=== PATIENT | female | born 1955 | race Caucasian/White ===

== ENCOUNTER → 2017-12-30 | Outpatient (CLI) | payer OTHER ==
--- NOTE | 2017-12-30 11:22 | Diagnostic Imaging Report ---
Clinical indication: Patient with vomiting and diabetes mellitus. Comparison: None. Procedure: Solid Gastric emptying study After oral ingestion of 1.01 millicuries of technetium 99M sulfur colloid, mixed with scrambled egg, sequential imaging of the abdomen is performed. Computer analysis is performed and gastric emptying curves are calculated. Findings: There is gastric emptying demonstrated with sequential imaging. The residual retained gastric activity: 1 hour: 32% (less than 30% equals rapid and greater than 90% equals delayed) 2 hours: 12% (greater than 60% represents abnormally delayed) 3 hours: 9% (greater than 30% represents abnormally delayed) 4 hours: 7% (greater than 10% represents abnormally delayed) Impression: Unremarkable gastric emptying study with near borderline rapid gastric emptying at the one hour time point. Dictated by: Dictated on workstation # [id number]
== END ==
LOC: CARD 06:44
PROVIDERS: ATTEND Family Medicine
DX: R11.2 Nausea with vomiting, unspecified (principal); E11.9 Type 2 diabetes mellitus without complications
CPT/HCPCS: 78264

== ENCOUNTER → 2018-01-13 | Outpatient (CLI) | payer OTHER ==
[~2018-01-13] MED LIST: CATHETER FLUSH 10 ML SYR IV PRN; HYDR-34 PO; INSU100I32 SQ; METF-397 PO; METO-451 PO; PARO-49 PO; RANI150T46 PO
--- NOTE | 2018-01-13 12:25 | Diagnostic Imaging Report ---
INDICATION: ] Quadrant pain. FINDINGS: The patient was administered 5.42 mCi of Tc 99m Choletec and sequential imaging was performed over the right upper abdomen. There is progressive, homogeneous accumulation of radiotracer within the liver parenchyma. There is filling of the bile ducts and subsequent filling of the gallbladder. There is progressive clearance of activity from the liver parenchyma and accumulation of radiotracer within loops of small bowel. The patient was then administered a fatty meal, utilizing 8 ounces of Ensure. The gallbladder ejection fraction was calculated to be approximately 9.7%. (Normal values post fatty meal stimulation are 33% or greater.) IMPRESSION: 1. Hepatobiliary scan demonstrates a patent biliary tree. 2. Abnormal gallbladder ejection fraction of approximately 9.7%. Dictated by: Dictated on workstation # [id number]
== END ==
LOC: CARD 09:21
PROVIDERS: ATTEND Family Medicine
DX: R10.11 Right upper quadrant pain (principal); R11.0 Nausea
CPT/HCPCS: 78227

== ENCOUNTER 2018-01-25 06:18 | Outpatient (CLI) | payer OTHER ==
[~2018-01-25] VITALS: Ht 167.6 cm; Wt 90.3 kg
[2018-01-25] MEDS ORDERED: PARO-49 PO (10:14)
[2018-01-25] MEDS ORDERED: RANI150T46 PO (10:14)
[2018-01-25] MEDS ORDERED: INSU100I32 SQ (10:14)
[2018-01-25] MEDS ORDERED: METF-397 PO (10:14)
[2018-01-25] MEDS ORDERED: METO-451 PO (10:14)
[2018-01-26] MEDS ORDERED: HYDR-34 PO (15:08)
== END 2018-01-25 10:24 | disposition home or self-care (01) ==
LOC: PREOP 06:18
PROVIDERS: ATTEND Surgery
DX: Z01.818 Encounter for other preprocedural examination (principal)

== ENCOUNTER 2018-01-26 10:58 | Day surgery (SDC) | payer OTHER ==
[~2018-01-26] VITALS: Ht 167.6 cm; Wt 90.3 kg
[~2018-01-26 10:58] MED LIST changes: -CATHETER FLUSH 10 ML SYR IV PRN; -HYDR-34 PO
[2018-01-26] MEDS ORDERED: LACTATED RINGERS 1,000 ML IV PRN (11:49)
[2018-01-26 12:00] VITALS: BP 147/83
[2018-01-26] MEDS ORDERED: ceFAZolin INJECTION 1,000 MG in NS (IVPB) 50 ML IV ONE (12:00)
[2018-01-26 12:10] LABS: BASOPHILS # (AUTO) 0.1 10^3/uL (0.0-0.1); BASOPHILS % (AUTO) 1 % (0-10); EOSINOPHILS # (AUTO) 0.5 10^3/uL (0.0-0.3); EOSINOPHILS % (AUTO) 6 % (0-10); HEMATOCRIT 41 % (35-52); HEMOGLOBIN 14.1 G/DL (11.5-16.0); LYMPHOCYTES # (AUTO) 2.7 X 10^3 (1.0-4.0); LYMPHOCYTES % (AUTO) 33 % (12-44); MEAN CORPUSCULAR HEMOGLOBIN 31 PG (25-34); MEAN CORPUSCULAR HGB CONC 35 G/DL (32-36); MEAN CORPUSCULAR VOLUME 88 FL (80-99); MEAN PLATELET VOLUME 9.9 FL (7.4-10.4); MONOCYTES # (AUTO) 0.5 X 10^3 (0.0-1.0); MONOCYTES % (AUTO) 7 % (0-12); NEUTROPHILS # (AUTO) 4.3 X 10^3 (1.8-7.8); NEUTROPHILS % (AUTO) 54 % (42-75); PLATELET COUNT 331 10^3/uL (130-400); RED BLOOD COUNT 4.62 10^6/uL (4.35-5.85); RED CELL DISTRIBUTION WIDTH 12.6 % (10.0-14.5)
--- OUTSIDE RECORDS SUMMARY | 2018-01-26 12:11 | XMS REPORT | Continuity of Care Document ---
Author Author [facility] Organization [facility] Address Unknown Phone Unavailable Allergies Active Description Code Type Severity Reaction Onset Reported/Identified Relationship to Patient Clinical Status Yes IODINE IODINE UNKNOWN Yes IODINE UNKNOWN UNKNOWN Yes iodine [id number] Drug Allergy Unknown N/A 01/13/2018 Medications Medication Packaging Start Date Stop Date Route Dosage Sig ONDANSETRON TAB 4 MG (ZOFRAN) MG 04/14/2016 PRN ONCE NORMAL SALINE 1000CC IV BAG INJ 0.9 % (NS 1000CC IV BAG) ml 04/14/2016 04/15/2016 CONTINUOUSEVERY 0 Hour NORMAL SALINE W/KCL 40MEQ IV 40 MEQ (SALINE IV BAG W/[id number]) MLS 04/14/2016 04/15/2016 CONTINUOUSEVERY 0 Hour POTASSIUM CHLORIDE TAB 20 MEQ (K-DUR) MEQ 04/14/2016 04/14/2016 ONCE&1724 NORMAL SALINE 500CC IV BAG INJ 0.9 % (NS 500CC IV BAG) ml 10/12/2017 10/12/2017 ONCE&1409 NORMAL SALINE 1000CC IV BAG INJ 0.9 % (NS 1000CC IV BAG) ml 12/14/2017 12/14/2017 ONCE&1103 Problems Date Dx Coded Attending Type Code Diagnosis Diagnosed By 08/20/2014 Ot 241.0 08/20/2014 JOYCE NOONAN MD Ot 241.0 08/20/2014 JOYCE NOONAN MD Ot 250.00 09/09/2014 Ot 241.0 09/09/2014 SHAISTA GARCIA, JOYCE Brewer Ot 241.0 09/09/2014 JOYCE NOONAN MD Ot 250.00 09/26/2014 Ot 241.0 09/26/2014 JOYCE NOONAN MD Ot 241.0 09/26/2014 SHAISTA GARCIA, JOYCE Brewer Ot 250.00 01/22/2015 Ot 241.0 01/22/2015 JOYCE NOONAN MD Ot 241.0 01/22/2015 JOYCE NOONAN MD Ot 250.00 01/23/2015 Ot 241.0 01/23/2015 SHAISTA GARCIA, JOYCE P Ot 241.0 01/23/2015 SHAISTA GARCIA, JOYCE P Ot 250.00 04/14/2015 Ot 241.0 04/14/2015 SHAISTA GARCIA, JOYCE P Ot 241.0 04/14/2015 SHAISTA GARCIA, JOYCE P Ot 250.00 07/10/2015 Ot 241.0 07/10/2015 SHAISTA GARCIA, JOYCE P Ot 241.0 07/10/2015 SHAISTA GARCIA, JOYCE P Ot 250.00 11/19/2015 Ot 241.0 NONTOX UNINODULAR GOITER 11/19/2015 SHAISTA GARCIA, JOYCE P Ot 241.0 NONTOX UNINODULAR GOITER 11/19/2015 SHAISTA GARCIA, JOYCE P Ot 250.00 DIAB KEVIN WO COMPL, TYPE II OR UNSPEC TY 11/24/2015 Ot 241.0 NONTOX UNINODULAR GOITER 11/24/2015 SHAISTA GARCIA, JOYCE P Ot 241.0 NONTOX UNINODULAR GOITER 11/24/2015 SHAISTA GARCIA, JOYCE P Ot 250.00 DIAB KEVIN WO COMPL, TYPE II OR UNSPEC TY 11/25/2015 TRIVEDI DO, MAYLIN L Ot E11.65 TYPE 2 DIABETES MELLITUS WITH HYPERGLYCE 11/25/2015 DO, MAYLIN L Ot I10 ESSENTIAL (PRIMARY) HYPERTENSION 11/27/2015 TRIVEDI DO, MAYLIN L Ot E11.65 TYPE 2 DIABETES MELLITUS WITH HYPERGLYCE 11/27/2015 DO, MAYLIN L Ot I10 ESSENTIAL (PRIMARY) HYPERTENSION 01/08/2016 TRIVEDI DO, MAYLIN L Ot E11.65 TYPE 2 DIABETES MELLITUS WITH HYPERGLYCE 01/08/2016 TRIVEDI DO, MAYLIN L Ot I10 ESSENTIAL (PRIMARY) HYPERTENSION 02/22/2016 TRIVEDI DO, MAYLIN L Ot E11.65 TYPE 2 DIABETES MELLITUS WITH HYPERGLYCE 02/22/2016 TRIVEDI DO, MAYLIN L Ot I10 ESSENTIAL (PRIMARY) HYPERTENSION 04/14/2016 Hilary Mara W 276.51 DEHYDRATION 04/14/2016 Giuseppe Kandis A 787.01 NAUSEA WITH VOMITING 04/14/2016 GiuseppeHilarya W E86.0 DEHYDRATION 04/14/2016 Hilary Mara A R11.2 NAUSEA WITH VOMITING, UNSPECIFIED 06/09/2016 Ot 241.0 NONTOX UNINODULAR GOITER 06/09/2016 JOYCE NOONAN MD Ot 241.0 NONTOX UNINODULAR GOITER 06/09/2016 SHAISTA GARCIA, JOYCE Brewer Ot 250.00 DIAB KEVIN WO COMPL, TYPE II OR UNSPEC TY 06/09/2016 SHIKHA DO, MAYLIN L Ot E11.65 TYPE 2 DIABETES MELLITUS WITH HYPERGLYCE 06/09/2016 TRIVEDI DO, MAYLIN L Ot I10 ESSENTIAL (PRIMARY) HYPERTENSION 10/12/2017 Daren Jackson W 250.80 DIABETES MELLITUS WITH OTHER SPECIFIED MANIFESTATIONS, TYPE II OR UNSPECIFIED TYPE, NOT STATED UNCONTROLLED 10/12/2017 Daren Jackson A 787.01 NAUSEA WITH VOMITING 10/12/2017 Daren Jackson E11.65 TYPE 2 DIABETES MELLITUS WITH HYPERGLYCEMIA 10/12/2017 Daren Jackson A R11.2 NAUSEA WITH VOMITING, UNSPECIFIED 10/16/2017 JOYCE NOONAN MD Ot 241.0 NONTOX UNINODULAR GOITER 10/16/2017 JOYCE NOONNA MD Ot 250.00 DIAB KEVIN WO COMPL, TYPE II OR UNSPEC TY 10/16/2017 SHIKHA DO, MAYLIN L Ot E11.65 TYPE 2 DIABETES MELLITUS WITH HYPERGLYCE 10/16/2017 TRIVEDI DO, MAYLIN L Ot I10 ESSENTIAL (PRIMARY) HYPERTENSION 12/14/2017 Hilary Mara W 250.00 DIABETES MELLITUS WITHOUT MENTION OF COMPLICATION, TYPE II OR UNSPECIFIED TYPE, NOT STATED UNCONTROLLED 12/14/2017 Giuseppe, Kandis A 276.51 DEHYDRATION 12/14/2017 Giuseppe, Kandis W 787.01 NAUSEA WITH VOMITING 12/14/2017 Giuseppe, Kandis W 787.91 DIARRHEA 12/14/2017 Giuseppe, Kandis W E11.9 TYPE 2 DIABETES MELLITUS WITHOUT COMPLICATIONS 12/14/2017 Giuseppe, Kandis A E86.0 DEHYDRATION 12/14/2017 Giuseppe, Kandis W R11.2 NAUSEA WITH VOMITING, UNSPECIFIED 12/14/2017 Giuseppe, Kandis W R19.7 DIARRHEA, UNSPECIFIED 01/02/2018 Ot E11.9 TYPE 2 DIABETES MELLITUS WITHOUT COMPLIC 01/02/2018 Ot R11.2 NAUSEA WITH VOMITING, UNSPECIFIED 01/13/2018 SHIKHA DO, MAYLIN L Ot E11.65 TYPE 2 DIABETES MELLITUS WITH HYPERGLYCE 01/13/2018 TRIVEDI DO, MAYLIN L Ot I10 ESSENTIAL (PRIMARY) HYPERTENSION 01/17/2018 KANDIS MAR MD Ot R10.11 RIGHT UPPER QUADRANT PAIN 01/17/2018 KANDIS MAR MD Ot R11.0 NAUSEA 01/25/2018 MAYLIN TRIVEDI DO Ot E11.65 TYPE 2 DIABETES MELLITUS WITH HYPERGLYCE 01/25/2018 MAYLIN TRIVEDI DO Ot I10 ESSENTIAL (PRIMARY) HYPERTENSION 01/25/2018 AGA RAINEY MD, Ot Z01.818 ENCOUNTER FOR OTHER PREPROCEDURAL EXAMIN 01/26/2018 AGA RAINEY MD, Ot Z01.818 ENCOUNTER FOR OTHER PREPROCEDURAL EXAMIN Procedures There is no data. Results Test Result Range Urinalysis - 04/14/16 15:06 Icotest N/A Negative Urine Volume Urine Volume Sufficient (10mL) Urine Yeast No Yeast present Urine-Appearance Clear Clear Urine-Bacteria Negative Urine-Bilirubin Negative Negative Urine-Blood Negative Negative Urine-Color Yellow Colorless-Lt. Yellow Urine-Epithelial Cells 0-5/HPF Urine-Glucose Trace Negative Urine-Ketones Negative Negative Urine-Leukocytes 1+ Negative Urine-Nitrite Negative Negative Urine-Other Urine Saved if Culture Needed (48hrs from time of collection) Urine-pH 6.5 5-8.5 Urine-Protein Negative Negative Urine-RBC 0-2/HPF Urine-Specific [place] 1.010 1.000-1.030 Urine-WBC 2-5/HPF Urobilinogen 0.2 0.2-1.0 Thyroid Stimulating Hormone - 04/14/16 15:15 TSH 3.82 mIU/mL 0.32-5.00 Comprehensive Metabolic Panel - 04/15/16 10:08 Albumin 3.8 g/dL 3.6-5.1 ALP 78 U/L 35-130 ALT 30 U/L 6-45 Anion Gap 14 6-14 AST 23 U/L 2-40 BUN 16 mg/dL 5-25 Calcium 9.9 mg/dL 8.3-10.4 Chloride 104 mmol/L 95-114 CO2 28 mEq/L 22-33 Creat 0.84 mg/dL 0.50-1.50 eGFR 69 mL/min/1.73m2 >59 Globulin 3.1 g/dL 2.3-3.5 Glucose 207 mg/dL 70-110 Osmo 300 280-295 Potassium 4.3 mmol/L 3.5-5.3 Sodium 142 mmol/L 134-148 TBil 0.5 mg/dL 0.2-1.2 TP 6.9 g/dL 6.0-8.3 Ova + Parasite Exam - 04/15/16 10:08 OVA + PARASITE EXAM FINAL REPORT RESULT 1 NO OVA, CYSTS, OR PARASITES SEEN. Lipid Panel - 04/22/16 07:31 C/HDL 7.0 3.7-6.7 Cholesterol 216 mg/dL 100-240 HDL 31 mg/dL 30-85 LDL-Calculated 108 mg/dL 0-100 Trig 383 mg/dL 35-160 VLDL 77 mg/dL 0-42 BMP - 06/24/16 07:50 Anion Gap 17 6-14 BUN 23 mg/dL 5-25 Calcium 9.5 mg/dL 8.3-10.4 Chloride 104 mmol/L 95-114 CO2 25 mEq/L 22-33 Creat 0.85 mg/dL 0.50-1.50 eGFR 68 mL/min/1.73m2 >59 Glucose 237 mg/dL 70-110 Osmo 304 280-295 Potassium 4.2 mmol/L 3.5-5.3 Sodium 142 mmol/L 134-148 Microalbumin - 09/14/16 07:54 Microalb 42.0 mg/L 0.0-20.0 KALPANA Other Source - 01/11/17 09:32 KALPANA Other Source No Fungal elements seen 0.00-0.00 Urine Culture - 01/11/17 17:18 PRELIM CULTURE RESULTS 50,000-100,000 Gram Positive - Coag Positive Staph - JOSE / ID to Follow MEDIA PLATED Setup at 17:40 on 01/11/2017 CULTURE SOURCE VOID Sensi - 01/11/17 17:18 FINAL CULTURE RESULTS Staphylococcus aureus (Isolate 1) Ampicillin/Sulbactam <=8/4 Ampicillin <=2 Amoxicillin/K Clavulanate <=4/2 Ceftriaxone <=8 Clindamycin <=0.5 Cefoxitin Screen <=4 Ciprofloxacin <=1 Daptomycin <=0.5 Erythromycin >4 Nitrofurantoin <=32 Gentamicin <=4 Gentamicin Synergy Screen N/R Inducible Clindamycin N/R Levofloxacin <=1 Linezolid 2 Moxifloxacin <=0.5 Oxacillin <=0.25 Penicillin <=0.03 Rifampin <=1 Streptomycin Synergy N/R Synercid <=0.5 Trimethoprim/ Sulfamethoxazole <=0.5/9.5 Tetracycline <=4 Vancomycin 1 Thyroid Stimulating Hormone - 10/12/17 12:28 TSH 1.46 mIU/mL 0.32-5.00 Urine Culture - 12/14/17 11:03 PRELIM CULTURE RESULTS No Growth 24 hours FINAL CULTURE RESULTS No Growth 48 hours [id number] Further Workup done CULTURE SOURCE [id number]\ Urinalysis - 12/14/17 11:03 Icotest N/A Negative Urine Volume Urine Volume Sufficient (10mL) Urine Yeast No Yeast present Urine-Appearance Clear Clear Urine-Bacteria Negative Urine-Bilirubin Negative Negative Urine-Blood Negative Negative Urine-Color Yellow Colorless-Lt. Yellow Urine-Epithelial Cells 0-5/HPF Urine-Glucose Negative Negative Urine-Ketones Negative Negative Urine-Leukocytes Negative Negative Urine-Nitrite Negative Negative Urine-Other Urine Saved if Culture Needed (48hrs from time of collection) Urine-pH 5.5 5-8.5 Urine-Protein Negative Negative Urine-RBC Negative Urine-Specific [place] <=1.005 1.000-1.030 Urine-WBC 0-2/HPF Urobilinogen 0.2 0.2-1.0 Urine Culture - 12/14/17 11:03 PRELIM CULTURE RESULTS No Growth 24 hours CULTURE SOURCE [id number]\ Lipase - 12/14/17 11:17 Lipase 18 U/L 7-59 Encounters ACCT No. Visit Date/Time Discharge Status Pt. Type Provider Facility Loc./Unit Complaint [id number] 01/25/2018 06:18:00 01/25/2018 10:24:00 DIS Outpatient AGA RAINEY MD [facility] PREOP BILIARY DYSKINESIA [id number] 01/13/2018 09:21:00 01/13/2018 23:59:59 CLS Outpatient KANDIS MAR MD [facility] CARD RUQ PAIN [id number] 02/23/2016 13:00:00 02/23/2016 23:59:59 CLS Preadmit MAYLIN TRIVEDI DO [facility] DSME TYPE 2 DIABETES [id number] 11/24/2015 12:32:00 02/22/2016 00:01:00 DIS Outpatient MAYLIN TRIVEDI DO [facility] DSME TYPE 2 DIABETES [id number] 09/29/2012 10:12:00 09/29/2012 23:59:59 CLS Outpatient JOYCE NOONAN MD [facility] RAD RT THYROID NODULE [id number] 01/26/2018 10:58:00 ACT Outpatient AGA RAINEY MD [facility] SDC BILIARY DYSKINESIA [id number] 12/30/2017 06:44:00 Document Registration [id number] 02/22/2012 09:51:00 Document Registration [id number] 12/14/2017 10:51:00 Document Registration [id number] 12/14/2017 10:51:00 12/14/2017 14:30:00 DIS Outpatient Kandis Mar [id number] 10/13/2017 08:48:00 10/13/2017 23:59:00 DIS Outpatient Daren Jackson [id number] 10/12/2017 11:33:00 10/12/2017 15:10:00 DIS Outpatient Daren Jackson [id number] 01/11/2017 09:16:00 01/11/2017 23:59:00 DIS Outpatient Ariefarnaz Sasha [id number] 09/14/2016 07:49:00 09/14/2016 23:59:00 DIS Outpatient Maylin Trivedi [id number] 06/24/2016 07:45:00 06/24/2016 23:59:00 DIS Outpatient Maylin Trivedi [id number] 04/22/2016 07:25:00 04/22/2016 23:59:00 DIS Outpatient Maylin Trivedi [id number] 04/15/2016 10:04:00 04/15/2016 23:59:00 DIS Outpatient Kandis Mar [id number] 04/14/2016 14:56:00 04/14/2016 20:10:00 DIS Outpatient Kandis Mar [id number] 04/14/2016 15:11:03 Document Registration
[2018-01-26] MEDS ORDERED: GLYCOPYRROLATE 0.2 MG/ML (ROBINUL) 2 ML VIAL ONE (12:55)
[2018-01-26] MEDS ORDERED: LIDOCAINE PF 2% 2 ML (XYLOCAINE) VIAL ONE ×2 (12:55→14:44)
[2018-01-26] MEDS ORDERED: NEOSTIGMINE 1 MG/ML 5 ML SYRINGE ONE (12:55)
[2018-01-26] MEDS ORDERED: ROCURONIUM 10 MG/ML 5 ML SYRINGE IV ONE (12:55)
[2018-01-26] MEDS ORDERED: SEVOFLURANE (ULTANE) 15 ML INHAL SOLN ONE (12:55)
[2018-01-26] MEDS ORDERED: ONDANSETRON 4 MG/2 ML (SDV) Z0FRAN ONE (12:55)
[2018-01-26] MEDS ORDERED: proPOfol 200 MG/20 ML (DIPRIVAN) VIAL IV ONE (12:55)
[2018-01-26] MEDS ORDERED: fentaNYL INJECTION 250 MCG/5 ML AMP ONE (12:56)
[2018-01-26] MEDS ORDERED: MIDAZOLAM 2 MG/2 ML (VERSED) VIAL ONE (12:56)
[2018-01-26] MEDS ORDERED: BUP/EPI 0.5% 1:200,000 (SENSORCAINE) 30 ML VIAL ONE (13:25)
--- NOTE | 2018-01-26 15:00 | Progress Note-Post Operative ---
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 Procedure & Operative Findings Date of Procedure 01/26/18 Procedure Performed/Findings laparoscopic cholecystectomy and umbilical hernia repair. Anesthesia Type GET Estimated Blood Loss Estimated blood loss (mL): minimal Specimens/Packing Specimens Removed gallbladder AGA RAINEY MD Jan 26, 2018 3:00 pm
--- NOTE | 2018-01-26 15:05 | Progress Note-Pre Operative ---
Pre-Operative Progress Note H&P Reviewed The H&P was reviewed, patient examined and no changes noted. Date Seen by Provider: Jan 26, 2018 Time Seen by Provider: 13:30 Date H&P Reviewed: Jan 26, 2018 Time H&P Reviewed: 13:30 Pre-Operative Diagnosis: biliary dyskinesia AGA RAINEY MD Jan 26, 2018 3:04 pm
[2018-01-26] MEDS ORDERED: HYDR-34 PO (15:08)
--- NOTE | 2018-01-26 15:08 | Discharge Inst-Surgical ---
D/C Lap Instructions-BRIGID New, Converted, or Re-Newed RX: RX on Chart Follow Up Appt in 2 weeks Activity as tolerated No driving for 24 hours No driving while on pain medications Incentive Spirometry use every 2 hours while awake Regular Diet Symptoms to Report: Fever over 101 degree F, Nausea/Vomiting Infection Signs and Symptoms to report: Increased redness, Foul odor of wound, Increased drainage Bathing instructions: May shower Operative Area Clean/Dry; Keep incision clean/dry If any problems/questions: Contact your physician or go to Emergency Room AGA RAINEY MD Jan 26, 2018 3:08 pm
[2018-01-26] MEDS ORDERED: ONDANSETRON 4 MG/2 ML (SDV) Z0FRAN IVP PRN ×2 (15:15)
[2018-01-26] MEDS ORDERED: HYDROmorphone 2 MG/ML VIAL (DILAUDID) IV ONE (15:15)
[2018-01-26] MEDS ORDERED: morphine INJ 10 MG/ML 1ML (SYR OR VIAL) IVP ONE (15:15)
[2018-01-26] MEDS ORDERED: morphine INJ 10 MG/ML 1ML (SYR OR VIAL) IVP PRN (15:15)
[2018-01-26] MEDS ORDERED: ACETAMINOPHEN 325 MG TABLET PO PRN (15:15)
[2018-01-26] MEDS ORDERED: HYDROcodone/APAP 7.5 MG/325 MG (LORTAB, LORCET PLUS) TABLET PO PRN (15:15)
--- NOTE | 2018-01-26 16:05 | OPERATIVE REPORT ---
DATE OF SERVICE: 01/26/2018 ATTENDING PRIMARY CARE PHYSICIAN: Kandis Chin MD PREOPERATIVE DIAGNOSIS: Symptomatic biliary dyskinesia. POSTOPERATIVE DIAGNOSES: Chronic calculous cholecystitis, reducible umbilical hernia. PROCEDURES: Laparoscopic cholecystectomy and laparoscopic umbilical hernia repair. SURGEON: Aga Rainey MD ANESTHESIA: General endotracheal. ESTIMATED BLOOD LOSS: Minimal. FINDINGS: Chronic gallbladder wall dilatation as well as examination ex-vivo showing multiple small gallstones. A small umbilical hernia with nothing within the hernia sac. DISPOSITION: The patient tolerated the procedure well. INDICATIONS: The patient is a 62-year-old female who has had issues with abdominal pain in the epigastric region as well as the right upper abdominal quadrant, which progressed in a couple months' duration as well as severity. She reports that eventually she developed nausea and vomiting usually after meals. An ultrasound was performed which did not show any gallstones; however, she had a HIDA scan performed which showed a low ejection fraction of 8%, and upon the administration of a Kinevac analogue, she did have a severe reproduction of symptoms consistent with a biliary dyskinesia. DESCRIPTION OF PROCEDURE: The patient was brought to the operating room, laid supine on the table. After adequate IV pain and sedative medications and general endotracheal intubation, the abdomen was prepped and draped in standard surgical fashion. A 0.5% Marcaine with epinephrine was used to anesthetize the overlying skin in the left upper abdominal quadrant and a small transverse skin incision made using a 15 blade. A 0 silk suture was applied to the medial aspect of the incision for retraction and a Veress needle inserted with a low opening pressure of 0 mmHg and the abdomen was then insufflated to 15 mmHg pressure. The Veress needle removed and a 5-mm Xcel trocar placed followed by a 5-mm 45-degree angle laparoscope to visualize the peritoneal cavity. A 4-quadrant abdominal exploration was performed. There was an umbilical hernia identified, which was approximately 2 cm in size with nothing within the hernia sac. There was a mild liver steatosis as well as a dilated gallbladder and mild chronic inflammatory changes. Under direct visualization, we then proceeded to place a trocar through the umbilical hernia site supraumbilically at the skin level after the skin and peritoneal lining were anesthetized using 0.5% Marcaine with epinephrine and a crescent-shaped skin incision made using a 15 blade. In a similar manner, a right upper abdominal quadrant 5-mm port was placed. The patient was then placed in reverse Trendelenburg position as well as plane right side up, left side down. The hepatoduodenal ligament was then opened using electrocautery on the hook instrument using electrocautery as well as blunt dissection. The entire critical view of safety was identified including the triangle of Calot, the cystic duct and artery as the only two structures going into the gallbladder as well as the cystic plate behind the proximal gallbladder. A timeout was then taken and the cystic duct and artery were then clipped proximally, distally and cut with EndoShears. The gallbladder was then dissected off the liver bed using electrocautery and a hook instrument with visualization of good hemostasis as well as no leaking ducts of Luschka. The gallbladder was removed through the 10-mm port site using an EndoCatch bag. We then turned our attention to repair of the umbilical hernia. Using a Thompson-Mary Kay device as well as the laparoscope for visualization, we then proceeded with primary repair of the umbilical hernia transversely. We proceeded with placement of rows of sutures transfascially using a Thompson-Mary Kay device using 2-0 Prolene sutures in a transverse fashion. Each one of these sutures after placed was then tagged. Once we were around the entirety of the length of the fascial defect, we then proceeded with tying of the sutures under direct visualization, visualizing closure of the fascia and peritoneal lining. Good hemostasis was observed. The abdomen was desufflated and remaining ports removed. All skin incisions were closed using 4-0 Monocryl running subcuticular sutures. Wounds were then cleaned and covered with Dermabond. The patient tolerated the procedure well. We will start IV normal pain medication as well as a clear liquid diet. Once she is tolerating clears, has good pain control with oral pain medications and is ambulating well, we will discharge her home. She will be instructed to do no heavy lifting or exertion for the next 6 weeks. Job ID: [id number] DocumentID: [id number] Dictated Date: 01/26/2018 15:17:05 Channel Development Director Date: 01/26/2018 16:05:12 Dictated By: AGA RAINEY MD
[2018-01-26 16:20] VITALS: BP 129/76
[2018-01-26 16:50] VITALS: BP 137/68
[2018-01-26 17:20] VITALS: BP 122/58
[2018-01-26 17:35] VITALS: BP 122/58
== END 2018-01-26 17:35 | disposition home or self-care (01) ==
LOC: SDC 10:58
PROVIDERS: ATTEND Surgery
DX: K80.10 Calculus of gallbladder with chronic cholecystitis without obstruction (principal); K82.8 Other specified diseases of gallbladder; E11.9 Type 2 diabetes mellitus without complications; Z79.4 Long term (current) use of insulin
CPT/HCPCS: 36415; 82962; 85025; 87081; 88304; 94664

== ENCOUNTER 2020-05-21 05:35 | Outpatient (RCR) | payer OTHER ==
[~2020-05-21] VITALS: Ht 167.7 cm; Wt 84.1 kg
[~2020-05-21 05:35] MED LIST changes: +ASPI-999 PO; +ATOR40TA70 PO; +HYDR-34 PO; +HYDR12.56 PO; +IRBE150T23 PO; +RANI-613 PO; -RANI150T46 PO
== END 2020-05-21 10:18 | disposition home or self-care (01) ==
LOC: PREOP 05:35
PROVIDERS: ATTEND Specialist
DX: Z01.812 Encounter for preprocedural laboratory examination (principal); H25.12 Age-related nuclear cataract, left eye; Z20.822 Contact with and (suspected) exposure to COVID-19
CPT/HCPCS: 87635

== ENCOUNTER 2020-05-23 06:54 | Day surgery (SDC) | payer OTHER ==
[~2020-05-23] VITALS: Ht 167.7 cm; Wt 84.1 kg
[2020-05-23 07:15] VITALS: BP 176/74
[2020-05-23] MEDS ORDERED: LIDOCAINE PF 1% 2 ML VIAL IR PRN (07:15)
[2020-05-23] MEDS ORDERED: POVIDONE (BETADINE) OPHTH SOLN 5% 30 ML OP ONE (07:15)
[2020-05-23] MEDS ORDERED: TIMOLOL MALEATE 0.5% 5 ML (TIMOPTIC) BTL OU PRN (07:15)
[2020-05-23] MEDS ORDERED: MOXIFLOXACIN OPHTH SOLN 5 MG/ML 0.3 ML SYRINGE OP ONE (07:15)
[2020-05-23] MEDS ORDERED: MIDAZOLAM 2 MG/2 ML (VERSED) VIAL ONE (07:27)
[2020-05-23] MEDS: TETRACAINE 0.5% OPHTH SOLN 4 ML BTL (SINGLE DOSE ONLY) OU PRN ×4 (07:30→07:48)
[2020-05-23] MEDS: TROPICAMIDE 1% OPH SOLN (MYDRIACYL) 15 ML BTL OP SCH ×3 (07:36→07:48)
[2020-05-23] MEDS: PHENYLEPHRINE 10% OPHTH (NEO-SYN) 5 ML BTL OU SCH ×3 (07:36→07:48)
--- NOTE | 2020-05-23 08:29 | Ophthalmology Operative Report ---
Cataract removal/placement IOL PREOPERATIVE DIAGNOSIS: Cataract Left Eye POSTOPERATIVE DIAGNOSIS: Cataract Left Eye PROCEDURE: Cataract removal and placement of posterior chamber implant, left eye SURGEON: Roland Reis ANESTHESIA: Topical with sedation COMPLICATIONS: None ESTIMATED BLOOD LOSS: Minimal DESCRIPTION OF PROCEDURE: After proper informed consent was obtained, the patient, a 64 female, was taken to the Operating Room and the left eye was anesthetized with tetracaine. The left eye was then prepped and draped in the usual manner. A wire lid speculum was placed. A paracentesis was made at the left hand position. Preservative free lidocaine was injected into the anterior chamber followed by viscoelastic. A clear corneal incision was made in the temporal position. A capsulorrhexis was preformed and the central nuclear and cortical material were removed. The posterior capsule was polished and an Nicola 20.0 AU00T0 was placed into the capsular bag. The residual viscoelastic was aspirated and balanced saline solution was injected into the anterior chamber. Moxifloxacin was injected into the anterior chamber. The wound was checked and found to be water tight. The patient tolerated the procedure well without complications. ROLAND REIS MD May 23, 2020 08:29
--- NOTE | 2020-05-23 08:29 | Ophthalmologist Pre-Op Note ---
Pre-Operative Progress Note H&P Reviewed The H&P was reviewed, patient examined and no changes noted. Date H&P Reviewed: May 23, 2020 Time H&P Reviewed: 09:10 Pre-Op Dx Cataract, Left Eye JOHN REIS MD May 23, 2020 08:28
[2020-05-23 08:45] VITALS: BP 163/52
--- NOTE | 2020-05-23 11:12 | Anesthesia-General Post-Op ---
MAC Patient Condition Mental Status/LOC: Same as Preop Cardiovascular: Satisfactory Nausea/Vomiting: Absent Respiratory: Satisfactory Pain: Controlled Complications: Absent Post Op Complications Complications None Follow Up Care/Instructions Patient Instructions None needed. Anesthesiology Discharge Order Discharge Order Patient is doing well, no complaints, stable vital signs, no apparent adverse anesthesia problems. No complications reported per nursing. LUANA BARRON CRNA May 23, 2020 11:12
[2020-05-23] MEDS ORDERED: acetaZOLAMIDE ER 500 MG CAP (DIAMOX SEQUELS) PO ONE (12:00)
== END 2020-05-23 08:45 | disposition home or self-care (01) ==
LOC: SDC 06:54
PROVIDERS: ATTEND Specialist
DX: E11.36 Type 2 diabetes mellitus with diabetic cataract (principal); H25.12 Age-related nuclear cataract, left eye; I10 Essential (primary) hypertension; M19.90 Unspecified osteoarthritis, unspecified site; F32.9 Major depressive disorder, single episode, unspecified; Z79.899 Other long term (current) drug therapy; Z91.041 Radiographic dye allergy status; Z88.8 Allergy status to other drugs, medicaments and biological substances; Z87.891 Personal history of nicotine dependence
CPT/HCPCS: 66984; 82962; V2632

== ENCOUNTER 2020-06-04 05:31 | Outpatient (RCR) | payer OTHER ==
--- NOTE | 2020-06-05 08:58 | NUR ---
Notified patient she was positive for COVID. She thought she had the flu last Tuesday. Sent copy of test to Dr Chin per patient request.
== END 2020-06-04 09:56 | disposition home or self-care (01) ==
LOC: PREOP 05:31
PROVIDERS: ATTEND Specialist
DX: Z01.812 Encounter for preprocedural laboratory examination (principal); H25.11 Age-related nuclear cataract, right eye; U07.1 COVID-19
CPT/HCPCS: 87635

== ENCOUNTER 2020-07-11 07:04 | Day surgery (SDC) | payer OTHER ==
[~2020-07-11] VITALS: Ht 167.7 cm; Wt 84.1 kg
[2020-07-11 07:15] VITALS: BP 188/70
[2020-07-11] MEDS ORDERED: MOXIFLOXACIN OPHTH SOLN 5 MG/ML 0.3 ML SYRINGE OP ONE (07:15)
[2020-07-11] MEDS ORDERED: POVIDONE (BETADINE) OPHTH SOLN 5% 30 ML OP ONE (07:15)
[2020-07-11] MEDS ORDERED: TIMOLOL MALEATE 0.5% 5 ML (TIMOPTIC) BTL OU PRN (07:15)
[2020-07-11] MEDS ORDERED: LIDOCAINE PF 1% 2 ML VIAL IR PRN (07:15)
[2020-07-11] MEDS: TETRACAINE 0.5% OPHTH SOLN 4 ML BTL (SINGLE DOSE ONLY) OU PRN ×4 (07:18→07:36)
[2020-07-11] MEDS: PHENYLEPHRINE 10% OPHTH (NEO-SYN) 5 ML BTL OU SCH ×3 (07:25→07:37)
[2020-07-11] MEDS: TROPICAMIDE 1% OPH SOLN (MYDRIACYL) 15 ML BTL OP SCH ×3 (07:25→07:36)
[2020-07-11] MEDS ORDERED: MIDAZOLAM 2 MG/2 ML (VERSED) VIAL ONE (07:51)
--- NOTE | 2020-07-11 08:06 | Ophthalmologist Pre-Op Note ---
Pre-Operative Progress Note H&P Reviewed The H&P was reviewed, patient examined and no changes noted. Date H&P Reviewed: Jul 11, 2020 Time H&P Reviewed: 08:06 Pre-Op Dx Cataract, Right Eye JOHN REIS MD Jul 11, 2020 08:06
--- NOTE | 2020-07-11 08:32 | Ophthalmology Operative Report ---
Cataract removal/placement IOL PREOPERATIVE DIAGNOSIS: Cataract Right Eye POSTOPERATIVE DIAGNOSIS: Cataract Right Eye PROCEDURE: Cataract removal and placement of posterior chamber implant, right eye SURGEON: Roland Reis ANESTHESIA: Topical with sedation COMPLICATIONS: None ESTIMATED BLOOD LOSS: Minimal DESCRIPTION OF PROCEDURE: After proper informed consent was obtained, the patient, a 64 female, was taken to the Operating Room and the right eye was anesthetized with tetracaine. The right eye was then prepped and draped in the usual manner. A wire lid speculum was placed. A paracentesis was made at the left hand position. Preservative free lidocaine was injected into the anterior chamber followed by viscoelastic. A clear corneal incision was made in the temporal position. A capsulorrhexis was preformed and the central nuclear and cortical material were removed. The posterior capsule was polished and Nicola 22.5 AU00T0 IOL was placed into the capsular bag. The residual viscoelastic was aspirated and balanced saline solution was injected into the anterior chamber. Moxifloxacin was injected into the anterior chamber. The wound was checked and found to be water tight. The patient tolerated the procedure well without complications. ROLAND REIS MD Jul 11, 2020 08:32
[2020-07-11 08:40] VITALS: BP 185/80
[2020-07-11] MEDS ORDERED: acetaZOLAMIDE ER 500 MG CAP (DIAMOX SEQUELS) PO ONE (10:00)
--- NOTE | 2020-07-11 11:41 | Anesthesia-General Post-Op ---
MAC Patient Condition Mental Status/LOC: Same as Preop Cardiovascular: Satisfactory Nausea/Vomiting: Absent Respiratory: Satisfactory Pain: Controlled Complications: Absent Post Op Complications Complications None Follow Up Care/Instructions Patient Instructions None needed. Anesthesiology Discharge Order Discharge Order Patient was seen after the procedure and she was doing well, no complaints, stable vital signs, no apparent adverse anesthesia problems. THEODORA KENDRICK DO Jul 11, 2020 11:40
== END 2020-07-11 08:40 | disposition home or self-care (01) ==
LOC: SDC 07:04
PROVIDERS: ATTEND Specialist
DX: E11.36 Type 2 diabetes mellitus with diabetic cataract (principal); H25.11 Age-related nuclear cataract, right eye; F32.9 Major depressive disorder, single episode, unspecified; M06.9 Rheumatoid arthritis, unspecified; Z79.84 Long term (current) use of oral hypoglycemic drugs; Z79.899 Other long term (current) drug therapy; Z91.041 Radiographic dye allergy status; Z88.8 Allergy status to other drugs, medicaments and biological substances; Z87.891 Personal history of nicotine dependence
CPT/HCPCS: 66984; V2632

== ENCOUNTER 2020-12-15 06:10 | Outpatient (CLI) | payer OTHER ==
[~2020-12-15] VITALS: Ht 167.7 cm; Wt 84.1 kg
== END 2020-12-15 10:48 | disposition home or self-care (01) ==
LOC: PREOP 06:10
PROVIDERS: ATTEND Specialist
DX: Z01.818 Encounter for other preprocedural examination (principal)

== ENCOUNTER 2020-12-19 09:23 | Day surgery (SDC) | payer OTHER ==
[~2020-12-19] VITALS: Ht 167.7 cm; Wt 84.1 kg
[2020-12-19] MEDS ORDERED: TROPICAMIDE 1% OPH SOLN (MYDRIACYL) 3 ML BTL OU ONE (10:15)
[2020-12-19] MEDS ORDERED: TETRACAINE 0.5% OPHTH SOLN 4 ML BTL (SINGLE DOSE ONLY) OP ONE (10:15)
[2020-12-19] MEDS ORDERED: PHENYLEPHRINE 10% OPHTH (NEO-SYN) 5 ML BTL OP ONE (10:15)
--- NOTE | 2020-12-19 10:47 | Ophthalmologist Pre-Op Note ---
Pre-Operative Progress Note H&P Reviewed The H&P was reviewed, patient examined and no changes noted. Date H&P Reviewed: Dec 19, 2020 Time H&P Reviewed: 10:47 Pre-Op Dx Secondary Cataract, Bilateral Eyes JOHN REIS MD Dec 19, 2020 10:47
[2020-12-19 10:57] VITALS: BP 143/68
--- NOTE | 2020-12-19 11:05 | Ophthalmology Operative Report ---
YAG Capsulotomy PREOPERATIVE DIAGNOSIS: Secondary Cataract Bilateral POSTOPERATIVE DIAGNOSIS: Secondary Cataract Bilateral PROCEDURE: YAG Capsulotomy, Bilateral SURGEON: Roland Reis ANESTHESIA: Topical anesthesia COMPLICATIONS: None ESTIMATED BLOOD LOSS: Minimal DESCRIPTION OF PROCEDURE: After proper informed consent was obtained, the patient's, a 65 female , received one drop of Tropicamide and one drop of Tetracaine in each eye. The patient was then placed at the YAG laser and using a power of [4.0 ] millijoules and bursts [16 ] right eye and [18 ] left eye were used to fashion a central capsulotomy. The patient tolerated the procedure well without complications. ROLAND REIS MD Dec 19, 2020 11:05
== END 2020-12-19 10:57 | disposition home or self-care (01) ==
LOC: SDC 09:23
PROVIDERS: ATTEND Specialist
DX: E11.36 Type 2 diabetes mellitus with diabetic cataract (principal); H26.493 Other secondary cataract, bilateral; F32.9 Major depressive disorder, single episode, unspecified; R03.0 Elevated blood-pressure reading, without diagnosis of hypertension; Z87.891 Personal history of nicotine dependence

== ENCOUNTER → 2021-11-20 | Outpatient (CLI) | payer OTHER ==
[~2021-11-20] VITALS: Ht 167.6 cm; Wt 90.9 kg
[~2021-11-20] MED LIST changes: +LIDOCAINE 1% INJ 20 ML VIAL INJ ONE
--- NOTE | 2021-11-20 14:14 | Diagnostic Imaging Report ---
INDICATION: Thyroid nodules. Patient presents for ultrasound-guided fine-needle aspiration and Rotex biopsy. Patient brought to the procedure room and placed on table in the supine position. Ultrasound imaging of the neck was performed to evaluate appropriate entry site. The right neck was then prepped and draped in usual sterile fashion. Small amount 1% lidocaine was utilized for local anesthesia. Multiple passes were made into the dominant solid nodule in the right lobe of the thyroid utilizing 25-gauge needles and fine-needle aspiration technique. A single pass was made with a Rotex needle and Rotex biopsy was performed. Hemostasis was obtained. Patient tolerated the procedure well and left the department in stable condition. IMPRESSION: Successful ultrasound-guided fine-needle aspiration and Rotex biopsy right lobe thyroid nodule. Dictated by: Dictated on workstation # [id number]
== END ==
LOC: RAD 12:33
PROVIDERS: ATTEND Otolaryngology Otolaryngology/Facial Plastic Surgery
DX: E04.2 Nontoxic multinodular goiter (principal)
CPT/HCPCS: 10005

== ENCOUNTER → 2022-08-30 | Outpatient (CLI) | payer OTHER, MEDICARE ==
[~2022-08-30] MED LIST changes: -LIDOCAINE 1% INJ 20 ML VIAL INJ ONE; +PARO-124 PO; -PARO-49 PO
--- NOTE | 2022-08-30 17:59 | Diagnostic Imaging Report ---
EXAMINATION: US Thyroid. TECHNIQUE: Multiple real-time grayscale images were obtained of the thyroid in various projections. HISTORY: Thyroid nodules. COMPARISON: None available. FINDINGS: The right lobe of the thyroid measures 5.5 x 2.6 x 2.0 cm. There is a mostly solid, isoechoic, wider than tall nodule with smooth margins measuring 2.2 cm. This has slightly decreased in size from prior exam. The left lobe of the thyroid measures 5.0 x 2.7 x 1.6 cm. There is a 1.1 cm solid, hyperechoic, wider than tall nodule with smooth margins. There is also a 1.6 cm isoechoic, wider than tall nodule with smooth margins. These have slightly decreased in size from prior exam. The isthmus is normal and measures 0.4 cm. No suspicious adenopathy within the visualized neck. IMPRESSION: 1. Bilateral thyroid nodules measuring up to 2.2 cm on the right, TI-RADS 3. These have slightly decreased in size from prior exam. TI-RADS 1: Benign No FNA or follow-up required TI-RADS 2: Not Suspicious No FNA or follow-up required TI-RADS 3: Mildly Suspicious FNA if ? 2.5 cm Follow if ? 1.5 cm (At 1, 3 and 5 years from initial scan) TI-RADS 4: Moderately Suspicious FNA if ? 1.5 cm Follow if ? 1 cm (At 1, 2, 3 and 5 years from initial scan) TI-RADS 5: Highly Suspicious FNA if ? 1 cm Follow if ? 0.5 cm (Annually for 5 years from initial scan) Dictated by: Dictated on workstation # [id number]
== END ==
LOC: RAD 15:15
PROVIDERS: ATTEND Otolaryngology Otolaryngology/Facial Plastic Surgery
DX: E04.2 Nontoxic multinodular goiter (principal)
CPT/HCPCS: 76536